=== PATIENT | male | born 1965 | race Asian ===

== ENCOUNTER 2019-01-02 21:06 | Observation (INO) | payer OTHER ==
--- NOTE | 2019-01-02 21:12 | ED Physician Documentation ---
PD HPI CHEST PAIN - Stated complaint Stated Complaint: CP - History obtained from History obtained from: Patient - History of Present Illness Timing - onset: Enter time (04:00), Today Timing - onset during: Sleep Timing - details: Abrupt onset, Intermittant Pain level max: 3 Pain level now: 0 Quality: Pain Location: Substernal Radiation: Other (no radiation) Improved by: Nothing Worsened by: Inspiration (mild pleuritic component, otherwise no apparent inciting/exacerbating factors) Associated symptoms: Shortness of air. No: Diaphoresis, Nausea, Vomiting, Palpitations, Cough Similar symptoms before: Has not had sx before Recently seen: Not recently seen - Additional information Additional information: c/o shortness of breath and midline anterior chest discomfort that woke him from sleep 4 AM this morning, episodic since then. Denies h/o similar symptoms. No known cardiac disease. Review of Systems Constitutional: reports: Reviewed and negative Cardiac: reports: Chest pain / pressure. denies: Palpitations, Pedal edema, Calf pain Respiratory: reports: Dyspnea. denies: Cough, Hemoptysis, Wheezing GI: reports: Reviewed and negative Musculoskeletal: reports: Reviewed and negative Neurologic: reports: Reviewed and negative PD PAST MEDICAL HISTORY - Past Medical History Past Medical History: No - Past Surgical History Past Surgical History: No - Allergies Allergies/Adverse Reactions: Allergies Allergy/AdvReac Type Severity Reaction Status Date / Time No Known Drug Allergies Allergy Verified 01/03/19 02:13 - Living Situation Living Situation: reports: With spouse/s.o. Living Arrangement: reports: At home - Social History Does the pt smoke?: No PD ED PE NORMAL - Vitals Vital signs reviewed: Yes - General General: Alert and oriented X 3, No acute distress, Well developed/nourished - HEENT HEENT: Moist mucous membranes - Neck Neck: Supple, no meningeal sign - Cardiac Cardiac: No murmur - Respiratory Respiratory: No respiratory distress, Clear bilaterally - Abdomen Abdomen: Soft, Non tender - Derm Derm: Normal color, Warm and dry - Extremities Extremities: No edema PD ED PE EXPANDED - Cardiac Cardiac: Tachy, Regular Rhythm Results - Vitals Vitals: Vital Signs - 24 hr 01/02/19 01/02/19 01/02/19 21:15 21:34 22:31 Temperature 36.4 C L Heart Rate 128 H 116 H 105 H Respiratory 22 20 18 Rate Blood Pressure 166/81 H 159/77 H 160/93 H O2 Saturation 97 95 96 Oxygen O2 Source Room air - EKG (time done) No standard instances Rate: Rate (enter#) (122) Rhythm: Sinus tachycardia [place]: Normal, Anterior hemiblock Intervals: Normal [place], RBBB QRS: Normal Ischemia: Normal ST segments Compare to prior EKG: Old EKG unavailable - Labs Labs: Laboratory Tests 01/02/19 01/02/19 01/02/19 21:25 21:25 21:25 WBC 13.2 H RBC 4.92 Hgb 14.6 Hct 44.0 MCV 89.5 MCH 29.8 MCHC 33.3 RDW 13.5 Plt Count 267 MPV 8.3 Neut # (Auto) 10.7 H Lymph # (Auto) 1.0 L [facility] # (Auto) 1.3 H Eos # (Auto) 0.1 Baso # (Auto) 0.1 Absolute Nucleated RBC 0.00 Nucleated RBC % 0.0 Sodium 138 Potassium 3.9 Chloride 105 Carbon Dioxide 23 Anion Gap 10.0 BUN 17 Creatinine 1.1 Estimated GFR (MDRD) 70 L Glucose 135 H Calcium 9.5 Total Bilirubin 0.7 AST 23 ALT 31 Alkaline Phosphatase 56 Troponin I < 0.04 Total Protein 7.6 Albumin 4.2 Globulin 3.4 Albumin/Globulin Ratio 1.2 Lipase 27 TSH 01/02/19 21:27 WBC RBC Hgb Hct MCV MCH MCHC RDW Plt Count MPV Neut # (Auto) Lymph # (Auto) [facility] # (Auto) Eos # (Auto) Baso # (Auto) Absolute Nucleated RBC Nucleated RBC % Sodium Potassium Chloride Carbon Dioxide Anion Gap BUN Creatinine Estimated GFR (MDRD) Glucose Calcium Total Bilirubin AST ALT Alkaline Phosphatase Troponin I Total Protein Albumin Globulin Albumin/Globulin Ratio Lipase TSH 3.60 - Rads (name of study) chest xray Radiology: Prelim report reviewed, See rad report CT chest angio (PE study) Radiology: Prelim report reviewed, See rad report PD MEDICAL DECISION MAKING - ED course Complexity details: reviewed results, re-evaluated patient, considered differential, d/w patient Departure - Departure Disposition: ED Place in Observation Clinical Impression: Chest pain Condition: Good Discharge Date/Time: 01/03/19 00:25
[2019-01-02 21:33] LABS: BASOPHILS # (AUTO) 0.1 10^3/uL (0.0-0.1); BASOPHILS % (AUTO) 0.8 %; EOSINOPHILS # (AUTO) 0.1 10^3/uL (0.0-0.7); EOSINOPHILS % (AUTO) 0.6 %; HGB - HEMOGLOBIN 14.6 g/dL (14.0-18.0); LYMPHOCYTES % (AUTO) 7.6 %; MEAN CORPUSCULAR HEMOGLOBIN 29.8 pg (27.0-31.0); MEAN CORPUSCULAR HGB CONC 33.3 g/dL (32.0-36.0); MEAN CORPUSCULAR VOLUME 89.5 fL (80.0-94.0); MEAN PLATELET VOLUME 8.3 fL (7.4-11.4); MONOCYTES # (AUTO) 1.3 10^3/uL (0.0-1.0); MONOCYTES % (AUTO) 9.6 %; NEUTROPHILS # (AUTO) 10.7 10^3/uL (1.5-6.6); NEUTROPHILS % (AUTO) 81.4 %; PLT - PLATELET COUNT 267 10^3/uL (130-450); RED BLOOD COUNT 4.92 10^6/uL (4.70-6.10); RED CELL DISTRIBUTION WIDTH 13.5 % (12.0-15.0); WHITE BLOOD COUNT 13.2 x10^3/uL (4.8-10.8)
--- NOTE | 2019-01-02 21:43 | XRAY Report ---
Reason: SOA, chest px Procedure Date: 01/02/2019 Accession Number: [id number] / [id number] Procedure: XR - Chest 1 View X-Ray CPT Code: 39712 FULL RESULT: EXAM: CHEST RADIOGRAPHY EXAM DATE: 01/02/2019 09:35 PM. CLINICAL HISTORY: Shortness of air, chest pain. COMPARISON: None. TECHNIQUE: 1 view. FINDINGS: Lungs/Pleura: No focal opacities evident. No pleural effusion. No pneumothorax. Mediastinum: Within exam limitations, the cardiomediastinal contour is normal. Other: None. IMPRESSION: Normal single view chest. RADIA
[2019-01-02 21:44] LABS: ALBUMIN 4.2 g/dL (3.2-5.5); ALBUMIN/GLOBULIN RATIO 1.2 (1.0-2.2); BILIRUBIN,TOTAL 0.7 mg/dL (0.2-1.0); CALCIUM 9.5 mg/dL (8.5-10.3); CREATININE 1.1 mg/dL (0.6-1.2); TOTAL PROTEIN 7.6 g/dL (6.7-8.2)
[2019-01-02] MEDS ORDERED: IOVERSOL 320 100 ML VIAL IVP ONE ×2 (22:13→22:46)
--- NOTE | 2019-01-02 22:53 | CT Report ---
Reason: chest pain, dyspnea Procedure Date: 01/02/2019 Accession Number: [id number] / [id number] Procedure: CT - ANGIO CHEST W/WO CPT Code: FULL RESULT: EXAM: CT ANGIOGRAM CHEST EXAM DATE: 01/02/2019 10:43 PM. CLINICAL HISTORY: Chest pain, dyspnea. COMPARISON: None. TECHNIQUE: Routine helical imaging was performed through the chest in the pulmonary arterial phase. IV Contrast: 55 ML OPTIRAY 320. Reconstructions: Coronal 3-D MIP reconstructions.Sagittal and coronal. In accordance with CT protocol optimization, one or more of the following dose reduction techniques were utilized for this exam: automated exposure control, adjustment of mA and/or KV based on patient size, or use of iterative reconstructive technique. FINDINGS: Pulmonary Arteries: Diagnostic quality: Adequate through the segmental arteries. No evidence for acute or chronic pulmonary emboli. No evidence of right heart strain. Lungs/Pleura: Mild bibasilar atelectasis. No pleural effusion seen. No pneumothorax. Mediastinum: Heart size is normal. No lymphadenopathy. Thoracic Aorta: Unremarkable. Upper Abdomen: Possible fatty liver. Other: None. IMPRESSION: 1. No pulmonary emboli seen. 2. Bibasilar atelectasis. 3. Possible fatty liver. RADIA
[2019-01-02] MEDS ORDERED: MORPHINE 2 MG/ML CARPUJECT IVP PRN (23:42)
[2019-01-02] MEDS ORDERED: ONDANSETRON 4 MG/2 ML VIAL IVP PRN (23:45)
[2019-01-02] MEDS ORDERED: ZOLPIDEM 5 MG TABLET PO PRN (23:45)
[2019-01-02] MEDS ORDERED: ACETAMINOPHEN 325 MG TABLET PO PRN (23:45)
[2019-01-02] MEDS ORDERED: HYDROcod/ACETAM 5/325 MG TABLET PO PRN (23:45)
[2019-01-02] MEDS ORDERED: SODIUM CHLORIDE FLUSH 0.9% 10 ML SYRINGE IVP PRN (23:45)
[2019-01-02] MEDS ORDERED: MAG HYDROX/AL HYDROX/SIMETH 30 ML UDC PO PRN (23:46)
[2019-01-03] MEDS ORDERED: SODIUM CHLORIDE 0.9% 1,000 ML IV ONE (00:29)
[2019-01-03] MEDS ORDERED: PANTOPRAZOLE 40 MG VIAL IV ONE (00:30)
[2019-01-03] MEDS ORDERED: ATORVASTATIN 40 MG TABLET PO ONE (01:00)
[2019-01-03] MEDS: IPRATROPIUM/ALBUTEROL 3 ML NEB INH SCH ×2 (01:10→07:37)
[2019-01-03] MEDS: SODIUM CHLORIDE FLUSH 0.9% 10 ML SYRINGE IVP SCH ×2 (01:21→10:33)
[2019-01-03] MEDS ORDERED: ASPIRIN CHEW 81 MG TABLET PO ONE (02:00)
--- NOTE | 2019-01-03 06:48 | HISTORY & PHYSICAL EXAMINATION ---
DATE OF SERVICE: 01/03/2019 Physician: Nunu White MD PRIMARY CARE PHYSICIAN: Lauren Vega MD CHIEF COMPLAINT: Chest pressure. HISTORY OF PRESENT ILLNESS: Patient is a 53-year-old white male with remote history of seasonal allergies and asthma. In the remote past, he used an inhaler, but not during the past 10 years at least. He was in his usual state of health up to the morning of 01/02, after he woke up, he felt tightness like chest discomfort. He also felt tight with his back. He felt it might have been his asthma and tried to rest. He slept upright because he also thought maybe he had gastric reflux. After he woke up, he still felt chest pressure. He described it as 4/10 in intensity. It was associated with shortness of breath. He felt hot and had mild cough. He never experienced similar symptoms in the past. He never had cardiac workup and other than the seasonal allergies and asthma, he has no other past medical history. He went for dinner with his , they celebrated their anniversary. At dinner, he felt worse and subsequently his parents drove him to the ER. At the ER, he was accompanied by his . The mentioned that she was worried as the patient has high pain tolerance, he never complains and he looked very uncomfortable before they came in. Regarding aggravating or alleviating factors, patient thought that the chest pressure was somewhat worse at rest. It did not increase on activity. He tried to take Tylenol and Zantac and Tums, which did not help. PAST MEDICAL HISTORY 1. Seasonal allergies and possible asthma, not using an inhaler recently not at least during the past 10 years. 2. History of ankle fracture. OUTPATIENT MEDICATIONS: The patient does not take prescription medications, only [id number] medications occasionally. SOCIAL HISTORY: The patient does not smoke, does not drink. He drives a garbage truck. FAMILY HISTORY: Reviewed, noncontributory. CODE STATUS: FULL CODE. REVIEW OF SYSTEMS: Please see pertinent positives listed above in history of present illness. The patient did not report additional complaints on the 12- system review. EMERGENCY ROOM COURSE AND WORKUP: Upon presentation to the ER, patient was tachycardic. Heart rate was up to the 120s. He was afebrile with temperature of 36.4, blood pressure was 166/81, respiratory rate was 22, oxygen saturation 97% on room air. Laboratories were nonrevealing with negative troponin, slightly elevated white blood cell count 13.2. Normal chemistry panel. Due to tachycardia and chest discomfort, patient underwent CT angiography of the chest, which showed no pulmonary emboli, bibasilar atelectasis and possible fatty liver. EKG showed right bundle branch block and left anterior fascicular block. It was an abnormal EKG and there was also sinus tachycardia. PHYSICAL EXAMINATION VITAL SIGNS: See listed above at history of present illness. GENERAL: The patient is a well-developed male who still complained of chest discomfort, but improved from previous. CARDIOVASCULAR: S1, S2. Regular tachycardia. LUNGS: Clear to auscultation without wheezes or crackles. During the exam, the patient had mild cough. LYMPHATIC: No lymphedema. MUSCULOSKELETAL: Truncal obesity. No chest wall tenderness. ABDOMEN: Distended abdomen Bowel tones present. There was epigastric tenderness. No guarding. No rebound. PSYCHIATRIC: Cooperative. NEUROLOGIC: Alert, oriented, nonfocal. DERMATOLOGIC: No jaundice. No rash. ASSESSMENT/DIAGNOSES 1. Abnormal EKG/right bundle branch block. No previous one to compare. Right bundle branch block is most likely chronic. It is a wide complex, but sinus tachycardia, does not appear like V-tachycardia, atrial fibrillation or atrial flutter. I would favor that this is a chronic EKG change. 2. Chest discomfort, mostly atypical features. The patient's chest pain complaint has mostly atypical features such as getting worse at rest and when he lies down. It is associated with mild cough; which would suggest gastroesophageal reflux plus minus mild asthma/URI. On exam, the patient really has epigastric tenderness. In addition, CT scan of the chest showed atelectasis, but no other problem. 3. Obesity, question sleep apnea. 4. Symptoms suggestive of gastroesophageal reflux. 5. Upper respiratory illness with remote history of asthma. SUMMARY: Patient is a 53-year-old male with no significant past medical history and with no prior cardiac workup. He does not have history of coronary artery disease or diabetes. Never had cardiac evaluation in the past. It is reassuring that the chest pain has been ongoing for more than 8 hours, started on the morning of 01/02/2019 and when the patient presents his troponin is negative, that would suggest noncardiac chest pain. The patient presents with complaints, which suggest possible reflux as his symptoms are worse when he lies flat and the pain is more epigastric than chest pain. Has mild cough and felt the chest pressure initially was similar to asthma symptoms he had in the past. At the same time, he does have an abnormal EKG, which would warrant further monitoring and workup. He does have right bundle branch block, which could be chronic. I question whether he has underlying sleep apnea. Tachycardia appears wide complex, but EKG is sinus rhythm. There is no V-tachycardia or atrial arrhythmia. PLAN AND ORDERS 1. Patient is being admitted under observation and undergoing rapid cardiac rule out. We will repeat EKG, monitor patient on telemetry, cycle troponins. For now, we will give aspirin and Lipitor. Symptom control for probable reflux will include proton pump inhibitor, Maalox, elevate the head of the bed and nonpharmacologic measures. Considering the patient had a mild cough and has history of allergies and asthma, we will use bronchodilators and incentive spirometry. White blood cell count was elevated, which could be a reactive change, I did not see any infectious source that would indicate antibiotic treatment. It is notable that the patient besides tachycardia was hypertensive that could be situational, will be monitored. If he remains hypertensive after symptom improvement, then antihypertensive medication should be considered. 2. Deep venous thrombosis prophylaxis. 3. FULL CODE. ATTESTATION: Expect <48 hrs hospital stay. Admitted under observation. Time spent with the care of this patient 60 minutes. TD: 01/03/2019 00:51 YENIFER
[2019-01-03 07:52] VITALS: BP 125/70
[2019-01-03] MEDS ORDERED: ASPIRIN EC 81 MG TABLET PO SCH (09:00)
[2019-01-03] MEDS ORDERED: POLYETHYLENE GLYCOL 3350 17 GM PACKET PO SCH (09:00)
--- NOTE | 2019-01-03 11:36 | Discharge Plan ---
Discharge Plan Disposition: Home, Self Care Condition: Stable Prescriptions: Albuterol Sulfate [Proair Hfa Inhaler] 1 - 2 puffs INH Q4H PRN #1 inhaler PRN Reason: Shortness Of Air/Wheezing Famotidine [Pepcid] 40 mg PO DAILY #30 tablet Diet: Regular (Low fat, low acid diet) Activity Restrictions: Activity as Tolerated Shower Restrictions: No Driving Restrictions: No Instruction Topics: Inhaler Use, GERD, Meds Acid Reflux, GERD Lifestyle Changes Additional Instructions or Follow Up instructions: You were In the hospital to evaluate your chest pain. We found that you had no heart attack or heart failure, but you did not have a stress test done, as we do not have that ability over the weekend. Your symptoms sound more like asthma, therefore you are being discharged with a new inhaler. The symptoms could also be from worsening of your acid reflux, therefore you are being discharged on a new acid treatment. You should refrain from using aspirin or Ibuprofen or Advil unless it is absolutely necessary, since they may cause stomach pain and ulcers. Try Tylenol Extra Strength for treating aches and pains (500-650 mg tablets). You should see your PCP in the next week for further evaluation and management and medication adjustments. If you have new or worsening symptoms, contact your PCP, or come to the ER. No Smoking: If you smoke, Please STOP! Call for help. Follow-up with: Lauren Vega DO [Provider Admit Priv/Credential] -
--- NOTE | 2019-01-03 12:20 | DISCHARGE SUMMARY ---
Discharge Summary Admit Date: 01/02/19 Discharge Date: 01/03/19 Discharging Provider: Dr Angelic Sawyer Primary Care Provider: Dr Lauren Vega Condition at Discharge: Stable Discharge Disposition: 01 Home, Self Care - DIAGNOSES Admission Diagnoses: 1. Chest pain 2. RBBB 3. Hx of GERD 4. Hx of asthma Discharge Diagnoses with Status of Each Condition: 1. Atypical chest pain. The CTA done in the ER showed no evidence of pulmonary embolism. He ruled out for an TX with troponins negative x3. His EKG showed no changes compared to day 1. His resting Echo showed no LV regional wall motion of normality's. No stress test could be done, since he was here over the weekend. The symptoms were more compatible with chest "tightness" from asthma or acid reflux symptoms(see below). 2. Asthma. The patient is on no prescription medications for this but holds this diagnosis. He reported that the "chest tightness feeling was like his ribs were closing in on him" and stated that he felt better after nebulizer treatment given here. He was therefore sent home with new prescription for Albuterol inhaler to use every 4 hours as needed 3. GERD. The symptoms were also consistent with possible GERD and therefore GERD may be associated with his asthma if he hasAspiration of acid. He was therefore sent home with new prescription for Pepcid. He was told to see his PCP in the next week for further management of these new symptoms. 4. Right bundle branch block. Given this finding on EKG and his morbid obesity, he should be evaluated for sleep apnea as an outpatient. 5. Morbid obesity. The patient's BMI is 36. He needs help with weight reduction. - HPI History of Present Illness: This is a 53-year-old white male with a history of seasonal allergies, asthma and GERD, is on no prescription medications. He has morbid obesity. He occasionally takes ibuprofen for a pinched nerve causing pain in his arm. He awoke with chest tightness in the front and back of his chest, rated 4/10. He was not short of breath or have any nausea or vomiting. He thought it was his asthma and tried resting, sitting upright. He tried taking Tylenol, Zantac and Tums and they did not help. There have never been similar symptoms. He has never had a cardiac work-up. He went for dinner with his and felt worse and presented to the ER after 8 hours of chest pain. The patient described the chest tightness being worse at rest and in the reclined position, not worse with activity. EKG showed right bundle branch block and there was no prior EKG for comparison. He was placed in Observation status to evaluate the chest pain. - CONSULTS | PROCEDURES Consultations: None - HOSPITAL COURSE Hospital Course: See above - ALLERGIES Allergies/Adverse Reactions: Allergies Allergy/AdvReac Type Severity Reaction Status Date / Time No Known Drug Allergies Allergy Verified 01/03/19 02:13 - MEDICATIONS Home Medications: Ambulatory Orders Medication Instructions Recorded Confirmed Albuterol Sulfate [Proair Hfa 1 - 2 puffs INH Q4H PRN #1 inhaler 01/03/19 Inhaler] Famotidine [Pepcid] 40 mg PO DAILY #30 tablet 01/03/19 - PHYSICAL EXAM AT DISCHARGE General Appearance: positive: No acute distress, Alert Eyes Bilateral: positive: Normal inspection ENT: positive: ENT inspection nml Neck: positive: Nml inspection Respiratory: positive: No respiratory distress Cardiovascular: positive: Regular rate & rhythm Abdomen: positive: Other (Obese) Extremities: positive: No pedal edema - LABS Result Diagrams: 01/02/19 21:25 01/02/19 21:25 - DIAGNOSTIC IMAGING Diagnostic Imaging Results: Final report reviewed - TIME SPENT Time Spent in Discharge (Minutes): 30
== END 2019-01-03 12:28 | disposition home or self-care (01) ==
LOC: ED 21:06 → OBS 23:43
PROVIDERS: ADMIT Internal Medicine; ATTEND Internal Medicine
DX: R07.89 Other chest pain (principal); I45.10 Unspecified right bundle-branch block; J45.909 Unspecified asthma, uncomplicated; K21.9 Gastro-esophageal reflux disease without esophagitis; E66.01 Morbid (severe) obesity due to excess calories; Z68.35 Body mass index [BMI] 35.0-35.9, adult; Z79.51 Long term (current) use of inhaled steroids
CPT/HCPCS: 36415; 71045; 71275; 83690; 84484; 93005; 93306; 94640; 96361; 96374; 96375; 99284; A9270; G0378; Q9967; 80053; 84443; 85025

== ENCOUNTER 2019-01-06 08:00 | Outpatient (CLI) | payer OTHER ==
[2019-01-06 14:17] LABS: BASOPHILS # (AUTO) 0.1 10^3/uL (0.0-0.1); BASOPHILS % (AUTO) 1.2 %; EOSINOPHILS # (AUTO) 0.2 10^3/uL (0.0-0.7); HGB - HEMOGLOBIN 14.7 g/dL (14.0-18.0); LYMPHOCYTES % (AUTO) 25.2 %; MEAN CORPUSCULAR HEMOGLOBIN 29.7 pg (27.0-31.0); MEAN CORPUSCULAR HGB CONC 32.8 g/dL (32.0-36.0); MEAN CORPUSCULAR VOLUME 90.6 fL (80.0-94.0); MEAN PLATELET VOLUME 8.5 fL (7.4-11.4); MONOCYTES # (AUTO) 0.7 10^3/uL (0.0-1.0); MONOCYTES % (AUTO) 8.9 %; NEUTROPHILS # (AUTO) 4.9 10^3/uL (1.5-6.6); NEUTROPHILS % (AUTO) 61.7 %; PLT - PLATELET COUNT 309 10^3/uL (130-450); RED BLOOD COUNT 4.94 10^6/uL (4.70-6.10); RED CELL DISTRIBUTION WIDTH 14.1 % (12.0-15.0); WHITE BLOOD COUNT 7.9 x10^3/uL (4.8-10.8)
[2019-01-06 14:38] LABS: ALBUMIN/GLOBULIN RATIO 1.1 (1.0-2.2); ALKALINE PHOSPHATASE 52 IU/L (42-121); ALT ALANINE AMINOTRANSFERASE 26 IU/L (10-60); AST ASPARTATE AMINOTRANSFERASE 20 IU/L (10-42); BILIRUBIN,TOTAL 0.5 mg/dL (0.2-1.0); BUN - BLOOD UREA NITROGEN 23 mg/dL (6-20); CALCIUM 9.2 mg/dL (8.5-10.3); CARBON DIOXIDE - CO2 22 mmol/L (21-32); CHLORIDE 107 mmol/L (101-111); CHOL/HDL RATIO 5.1 (<5.0); CHOLESTEROL 221 mg/dL; GFR - MDRD 78 (>89); GLUCOSE 104 mg/dL (70-100); HDL CHOLESTEROL 43 mg/dL; LDL CHOLESTEROL,CALCULATED 156 mg/dL; LDL/HDL RATIO 3.6 (<3.6); SODIUM 137 mmol/L (135-145); TOTAL PROTEIN 7.5 g/dL (6.7-8.2); VLDL CHOLESTEROL 22 mg/dL
== END 2019-01-06 08:01 | disposition home or self-care (01) ==
LOC: LAB.WCP 08:00
PROVIDERS: ATTEND Family Medicine
DX: Z00.00 Encounter for general adult medical examination without abnormal findings (principal); Z12.5 Encounter for screening for malignant neoplasm of prostate
CPT/HCPCS: 36415; 80053; 80061; 83721; 84153; 85025

== ENCOUNTER 2019-05-25 08:59 | Day surgery (SDC) | payer OTHER ==
[2019-05-25] MEDS ORDERED: LACTATED RINGERS 1,000 ML IV ONE (09:27)
[2019-05-25 12:40] VITALS: BP 98/66
== END 2019-05-25 09:00 | disposition home or self-care (01) ==
LOC: SDS 08:59
PROVIDERS: ATTEND Internal Medicine Gastroenterology
PROC: 0DJD8ZZ Inspection of Lower Intestinal Tract, Via Natural or Artificial Opening Endoscopic (ICD-10-PCS; principal; 2019-05-25 10:45)
DX: Z12.11 Encounter for screening for malignant neoplasm of colon (principal); I45.10 Unspecified right bundle-branch block; E66.9 Obesity, unspecified; Z68.36 Body mass index [BMI] 36.0-36.9, adult; Z87.891 Personal history of nicotine dependence
CPT/HCPCS: 45378; J7120

== ENCOUNTER 2020-01-17 06:26 | Emergency (ER) | payer OTHER ==
[2020-01-17 06:45] VITALS: BP 147/74
--- NOTE | 2020-01-17 07:17 | ED Physician Documentation ---
History of Present Illness - Stated complaint Stated Complaint: MALE - Chief complaint Chief Complaint: General - History obtained from History obtained from: Patient, Family - History of Present Illness Timing: Today - Additonal information Additional information: 54-year-old male noticed a lump in his rectum 3 days ago and it was a little bit tender and he had not had this happen to him previously. He thought this was probably a hemorrhoid. Today he began to bleed excessively and is continuing to bleed he is come to the emergency department with blood all over his shorts. Review of Systems Constitutional: denies: Fever Eyes: denies: Decreased vision Ears: denies: Ear pain Nose: denies: Congestion Throat: denies: Sore throat Cardiac: denies: Chest pain / pressure, Palpitations Respiratory: denies: Dyspnea, Cough GI: denies: Abdominal Pain, Nausea, Vomiting, Constipation, Diarrhea : denies: Dysuria, Frequency Skin: denies: Rash Musculoskeletal: denies: Neck pain, Back pain, Extremity pain Neurologic: denies: Generalized weakness, Focal weakness, Numbness PD PAST MEDICAL HISTORY - Past Medical History Past Medical History: Yes Cardiovascular: None Respiratory: Asthma Neuro: None Endocrine/Autoimmune: None GI: None : None HEENT: None Psych: None Musculoskeletal: Osteoarthritis Derm: None - Past Surgical History Past Surgical History: Yes General: Colonoscopy Derm: Other - Present Medications Home Medications: Ambulatory Orders Medication Instructions Recorded Confirmed No Known Home Medications 01/17/20 01/17/20 - Allergies Allergies/Adverse Reactions: Allergies Allergy/AdvReac Type Severity Reaction Status Date / Time No Known Drug Allergies Allergy Verified 01/17/20 06:45 - Social History Does the pt smoke?: No Smoking Status: Never smoker Does the pt drink ETOH?: Yes ETOH Use: Beer, Liquor Does the pt have substance abuse?: No - Immunizations Immunizations are current?: Yes - POLST Patient has POLST: No PD ED PE NORMAL - Vitals Vital signs reviewed: Yes (hypertensive mild ) - General General: Alert and oriented X 3, Well developed/nourished, Other (mildly anxious ) - HEENT HEENT: Atraumatic, PERRL, EOMI - Respiratory Respiratory: No respiratory distress - Rectal Rectal: Other (There is an external hemorrhoid at 4:00 it is unroofed and bleeding. I am able to reduce it with continued pressure. This is not stop the bleeding. After a clean up the area is compressed again for an extended period of time with improvement in the bleeding.) - Derm Derm: Normal color, Warm and dry, No rash - Extremities Extremities: No deformity, No edema, No calf tenderness / cord - Neuro Neuro: Alert and oriented X 3, clinical account manager 2-12 intact, No motor deficit, No sensory deficit, Normal speech Eye Opening: Spontaneous Motor: Obeys Commands Verbal: Oriented GCS Score: 15 - Psych Psych: Normal mood, Normal affect Results - Vitals Vitals: Vital Signs - 24 hr 01/17/20 06:30 Temperature 36.5 C Heart Rate 65 Respiratory 18 Rate Blood Pressure 147/74 H O2 Saturation 97 Oxygen O2 Source Room air PD MEDICAL DECISION MAKING - ED course Complexity details: reviewed old records, re-evaluated patient, considered differential, d/w patient ED course: 54-year-old male with a bleeding external hemorrhoid has no other specific complaints. I discussed with the patient care of hemorrhoids including reduction of them when they happen and application of hydrocortisone when they are inflamed. I have asked him to place direct pressure for continued period of time should he have recurrence of his bleeding. Departure - Departure Disposition: 01 Home, Self Care Clinical Impression: External hemorrhoid, bleeding Condition: Stable Instructions: ED Hemorrhoids Follow-Up: Lauren Vgea DO [Primary Care Provider] -
== END 2020-01-17 07:34 | disposition home or self-care (01) ==
LOC: ED 06:26
DX: K64.4 Residual hemorrhoidal skin tags (principal)
CPT/HCPCS: 99282; 99284

== ENCOUNTER 2020-01-19 07:49 | Outpatient (CLI) | payer OTHER ==
[2020-01-19 12:17] LABS: BASOPHILS # (AUTO) 0.1 10^3/uL (0.0-0.1); BASOPHILS % (AUTO) 1.4 %; EOSINOPHILS # (AUTO) 0.2 10^3/uL (0.0-0.7); EOSINOPHILS % (AUTO) 2.4 %; HGB - HEMOGLOBIN 15.4 g/dL (14.0-18.0); LYMPHOCYTES % (AUTO) 28.1 %; MEAN CORPUSCULAR HEMOGLOBIN 30.7 pg (27.0-31.0); MEAN CORPUSCULAR VOLUME 93.2 fL (80.0-94.0); MEAN PLATELET VOLUME 10.2 fL (7.4-11.4); MONOCYTES # (AUTO) 0.7 10^3/uL (0.0-1.0); MONOCYTES % (AUTO) 9.8 %; NEUTROPHILS % (AUTO) 57.9 %; PLT - PLATELET COUNT 317 10^3/uL (130-450); RED BLOOD COUNT 5.01 10^6/uL (4.70-6.10); RED CELL DISTRIBUTION WIDTH 12.9 % (12.0-15.0); WHITE BLOOD COUNT 6.9 x10^3/uL (4.8-10.8)
[2020-01-19 13:15] LABS: ALBUMIN/GLOBULIN RATIO 1.3 (1.0-2.2); ALKALINE PHOSPHATASE 56 IU/L (42-121); ALT ALANINE AMINOTRANSFERASE 29 IU/L (10-60); AST ASPARTATE AMINOTRANSFERASE 20 IU/L (10-42); BILIRUBIN,TOTAL 0.7 mg/dL (0.2-1.0); BUN - BLOOD UREA NITROGEN 20 mg/dL (6-20); CALCIUM 9.3 mg/dL (8.5-10.3); CARBON DIOXIDE - CO2 24 mmol/L (21-32); CHLORIDE 107 mmol/L (101-111); CHOL/HDL RATIO 6.5 (<5.0); CHOLESTEROL 286 mg/dL; CREATININE 1.1 mg/dL (0.6-1.2); GLUCOSE 111 mg/dL (70-100); HDL CHOLESTEROL 44 mg/dL; LDL CHOLESTEROL,CALCULATED 217 mg/dL; LDL/HDL RATIO 4.9 (<3.6); SODIUM 137 mmol/L (135-145); VLDL CHOLESTEROL 25 mg/dL
[2020-01-19 14:43] LABS: FREE T4 (FREE THYROXINE) 0.85 ng/dL (0.58-1.64)
== END 2020-01-19 23:59 | disposition home or self-care (01) ==
LOC: LAB.WCP 07:49
PROVIDERS: ATTEND Family Medicine
DX: J45.909 Unspecified asthma, uncomplicated (principal); E66.9 Obesity, unspecified; I45.10 Unspecified right bundle-branch block; Z68.35 Body mass index [BMI] 35.0-35.9, adult; Z12.5 Encounter for screening for malignant neoplasm of prostate; K64.4 Residual hemorrhoidal skin tags
CPT/HCPCS: 36415; 80053; 80061; 83721; 84153; 84439; 84443; 85025

== ENCOUNTER 2022-11-12 09:40 | Outpatient (CLI) | payer OTHER ==
[2022-11-12 12:28] LABS: BASOPHILS # (AUTO) 0.1 10^3/uL (0.0-0.1); BASOPHILS % (AUTO) 1.3 %; EOSINOPHILS # (AUTO) 0.2 10^3/uL (0.0-0.7); EOSINOPHILS % (AUTO) 2.7 %; HGB - HEMOGLOBIN 14.7 g/dL (14.0-18.0); LYMPHOCYTES # (AUTO) 1.4 10^3/uL (1.5-3.5); LYMPHOCYTES % (AUTO) 17.7 %; MEAN CORPUSCULAR HEMOGLOBIN 29.9 pg (27.0-31.0); MEAN CORPUSCULAR HGB CONC 32.7 g/dL (32.0-36.0); MEAN CORPUSCULAR VOLUME 91.6 fL (80.0-94.0); MEAN PLATELET VOLUME 10.4 fL (7.4-11.4); MONOCYTES # (AUTO) 0.8 10^3/uL (0.0-1.0); MONOCYTES % (AUTO) 9.9 %; NEUTROPHILS # (AUTO) 5.3 10^3/uL (1.5-6.6); NEUTROPHILS % (AUTO) 67.9 %; PLT - PLATELET COUNT 311 10^3/uL (130-450); RED BLOOD COUNT 4.91 10^6/uL (4.70-6.10); RED CELL DISTRIBUTION WIDTH 12.9 % (12.0-15.0); WHITE BLOOD COUNT 7.7 x10^3/uL (4.8-10.8)
[2022-11-12 12:57] LABS: ALBUMIN 4.1 g/dL (3.2-5.5); ALBUMIN/GLOBULIN RATIO 1.2 (1.0-2.2); ALKALINE PHOSPHATASE 58 IU/L (42-121); ALT ALANINE AMINOTRANSFERASE 22 IU/L (10-60); AST ASPARTATE AMINOTRANSFERASE 19 IU/L (10-42); BILIRUBIN,TOTAL 0.6 mg/dL (0.2-1.0); BUN - BLOOD UREA NITROGEN 17 mg/dL (6-20); CALCIUM 9.3 mg/dL (8.5-10.3); CARBON DIOXIDE - CO2 27 mmol/L (21-32); CHLORIDE 106 mmol/L (101-111); CHOL/HDL RATIO 6.1 (<5.0); CHOLESTEROL 261 mg/dL; GFR - MDRD 77 (>89); GLUCOSE 112 mg/dL (70-100); HDL CHOLESTEROL 43 mg/dL; LDL CHOLESTEROL,CALCULATED 190 mg/dL; LDL/HDL RATIO 4.4 (<3.6); POTASSIUM 4.1 mmol/L (3.5-5.0); SODIUM 138 mmol/L (135-145); TOTAL PROTEIN 7.5 g/dL (6.7-8.2); TRIGLYCERIDES 140 mg/dL; VLDL CHOLESTEROL 28 mg/dL
[2022-11-12 13:09] LABS: THYROID STIMULATING HORMONE 5.54 uIU/mL (0.34-5.60)
[2022-11-12 14:09] LABS: ESTIMATED AVERAGE GLUCOSE 117 mg/dL (70-100); HEMOGLOBIN A1c% 5.7 % (4.27-6.07)
== END 2022-11-12 09:41 | disposition home or self-care (01) ==
LOC: LAB.N 09:40
PROVIDERS: ATTEND Nurse Practitioner Family
DX: I10 Essential (primary) hypertension (principal); R73.01 Impaired fasting glucose; E66.9 Obesity, unspecified
CPT/HCPCS: 36415; 80053; 80061; 83036; 83721; 84443; 85025

== ENCOUNTER 2022-11-16 17:23 | Emergency (ER) | payer OTHER ==
[2022-11-16 17:59] LABS: RAPID STREP SCREEN Negative (Negative)
--- NOTE | 2022-11-16 18:40 | XRAY Report ---
PROCEDURE: Chest 2 View X-Ray INDICATIONS: productive cough with SOA TECHNIQUE: 2 views of the chest were acquired. COMPARISON: None. FINDINGS: Surgical changes and devices: None. Lungs and pleura: No pleural effusions or pneumothorax. Lungs are clear. Mediastinum: Mediastinal contours appear normal. Heart size is normal. Bones and chest wall: No suspicious bony lesions. Overlying soft tissues appear unremarkable. IMPRESSION: Normal two-view chest x-ray Reviewed by: Chilo Valero MD on 11/16/2022 5:39 PM [facility]DT Approved by: Chilo Valero MD on 11/16/2022 5:39 PM [facility]DT Station ID: [id number]
[2022-11-16 18:43] LABS: CORONAVIRUS 229E-RESP PCR NOT DETECTED; CORONAVIRUS HKU1-RESP PCR NOT DETECTED; CORONAVIRUS NL63-RESP PCR NOT DETECTED; CORONAVIRUS OC43-RESP PCR NOT DETECTED
[2022-11-16 18:44] LABS: B. PARAPERTUSSIS- RESP PCR PAN NOT DETECTED; B. PERTUSSIS- RESP PCR PANEL NOT DETECTED; C. PNEUMONIAE- RESP PCR PANEL NOT DETECTED; HUMAN METAPNEUMOVIRUS NOT DETECTED; INFLUENZA A- RESP PCR PANEL NOT DETECTED; INFLUENZA B - RESP PCR PANEL NOT DETECTED; M. PNEUMONIAE- RESP PCR PANEL NOT DETECTED; PARAINFLUENZA VIRUS 1 NOT DETECTED; PARAINFLUENZA VIRUS 2 NOT DETECTED; PARAINFLUENZA VIRUS 3 DETECTED; PARAINFLUENZA VIRUS 4 NOT DETECTED; RHINOVIRUS/ENTEROVIRUS NOT DETECTED; RSV- RESP PCR PANEL NOT DETECTED; SARS-CoV-2 -RESP PCR PANEL NOT DETECTED
[2022-11-16] MEDS ORDERED: IPRATROPIUM/ALBUTEROL 3 ML NEB INH STA (20:06)
[2022-11-16] MEDS ORDERED: predniSONE 20 MG TABLET PO STA (20:06)
[2022-11-16] MEDS ORDERED: BENZONATATE 100 MG CAPSULE PO STA (20:14)
--- NOTE | 2022-11-16 20:22 | ED Physician Documentation ---
PD HPI URI - Stated complaint Stated Complaint: FEVER/SOA - Chief complaint Chief Complaint: Resp - History obtained from History obtained from: Patient - History of Present Illness Timing - onset: How many days ago (3-4) Timing duration: Days (3-4) Timing details: Gradual onset Pain level max: 0 Pain level now: 0 Associated symptoms: Fever, Rhinorrhea, Sore throat, Productive cough, Dyspnea. No: Chills, Hemoptysis, Chest pain Contributing factors: Sick contact, COPD / asthma Improves by: Rest Worsened by: Activity - Additional information Additional information: 57-year-old male presents to the emergency department with 3 to 4 days of cough and congestion. Also has wheezing. Has used inhalers in the past, but does not currently have one. Review of Systems Constitutional: denies: Fever, Chills Respiratory: denies: Cough GI: denies: Vomiting, Diarrhea PD PAST MEDICAL HISTORY - Past Medical History Cardiovascular: Hypertension, High cholesterol Respiratory: Asthma Neuro: None Endocrine/Autoimmune: None GI: None : None HEENT: None Psych: None Musculoskeletal: Osteoarthritis Derm: None - Past Surgical History Past Surgical History: Yes General: Colonoscopy Derm: Other - Present Medications Home Medications: Ambulatory Orders Medication Instructions Recorded Confirmed Albuterol Sulf [Ventolin Hfa 1 - 2 puffs INH Q4HR PRN #1 each 11/16/22 Inhaler] Benzonatate [Tessalon] 200 mg PO TID PRN #30 cap 11/16/22 predniSONE [Deltasone] 10 mg PO [id number] #42 tab 11/16/22 - Allergies Allergies/Adverse Reactions: Allergies Allergy/AdvReac Type Severity Reaction Status Date / Time hay Allergy Unknown Uncoded 11/16/22 17:43 - Social History Does the pt smoke?: No Smoking Status: Never smoker Does the pt drink ETOH?: Yes Does the pt have substance abuse?: No - Immunizations Immunizations are current?: Yes - POLST Patient has POLST: No PD ED PE NORMAL - Vitals Vital signs reviewed: Yes - General General: Alert and oriented X 3, No acute distress - HEENT HEENT: PERRL, Ears normal, Moist mucous membranes, Other (Mild posterior pharyngeal erythema without tonsillar exudates. Normal phonation. No trismus. No stridor.) - Neck Neck: Supple, no meningeal sign, No adenopathy - Cardiac Cardiac: RRR - Respiratory Respiratory: No respiratory distress, Other (Mild wheezing bilaterally) - Abdomen Abdomen: Soft, Non tender, Non distended - Derm Derm: Warm and dry - Neuro Neuro: Alert and oriented X 3 - Psych Psych: Normal mood, Normal affect Results - Vitals Vitals: Vital Signs - 24 hr 11/16/22 11/16/22 11/16/22 17:39 20:00 20:25 Temperature 37.3 C Heart Rate 111 H 90 88 Respiratory 24 16 Rate Blood Pressure 162/80 H 148/72 H O2 Saturation 95 92 11/16/22 20:47 Temperature Heart Rate 87 Respiratory 19 Rate Blood Pressure 102/54 L O2 Saturation 91 L Oxygen O2 Source Room air - Labs Labs: Laboratory Tests 11/16/22 11/16/22 17:44 17:44 Nasal Adenovirus (PCR) NOT DETECTED Nasal B. parapertussis DNA (PCR) NOT DETECTED Nasal Coronavir 229E PCR NOT DETECTED Nasal Coronavir HKU1 PCR NOT DETECTED Nasal Coronavir NL63 PCR NOT DETECTED Nasal Coronavir OC43 PCR NOT DETECTED Nasal Enterovir/Rhinovir PCR NOT DETECTED Nasal Influenza B PCR NOT DETECTED Nasal Influenza A PCR NOT DETECTED Nasal Parainfluen 1 PCR NOT DETECTED Nasal Parainfluen 2 PCR NOT DETECTED Nasal Parainfluen 3 PCR DETECTED A Nasal Parainfluen 4 PCR NOT DETECTED Nasal RSV (PCR) NOT DETECTED Nasal B.pertussis DNA PCR NOT DETECTED Nasal C.pneumoniae (PCR) NOT DETECTED Jasen Human Metapneumo PCR NOT DETECTED Nasal M.pneumoniae (PCR) NOT DETECTED Nasal SARS-CoV-2 (PCR) NOT DETECTED Group A Strep Rapid Negative - Rads (name of study) Chest x-ray Relevant Findings:: Final report received, See rad report (No acute abnormality) PD Medical Decision Making - ED course Complexity details: reviewed results, re-evaluated patient, considered differential, d/w patient, d/w family ED course: Patient is positive for parainfluenza. Negative for pneumonia on chest x-ray. Given prednisone here, Tessalon and DuoNeb treatment. Patient is breathing easier and feels better. We will represcribe an inhaler for home. COVID is negative. Patient is well-appearing, nontoxic. Afebrile. No respiratory distress. No hypoxia. Patient counseled regarding signs and symptoms for which I believe and urgent re-evaluation would be necessary. Patient with good understanding of and agreement to plan and is comfortable going home at this time This document was made in part using voice recognition software. While efforts are made to proofread this document, sound alike and grammatical errors may occur. Departure - Departure Disposition: 01 Home, Self Care Clinical Impression: Parainfluenza Upper respiratory tract infection Qualifiers: URI type: unspecified viral URI Qualified Code(s): J06.9 - Acute upper respiratory infection, unspecified Condition: Good Instructions: ED Viral Syndrome Follow-Up: Angle Rick ARNP [Primary Care Provider] - Within 1 week Prescriptions: Albuterol Sulf [Ventolin Hfa Inhaler] 1 - 2 puffs INH Q4HR PRN #1 each PRN Reason: Shortness Of Air/Wheezing predniSONE [Deltasone] 10 mg PO [id number] #42 tab Benzonatate [Tessalon] 200 mg PO TID PRN #30 cap PRN Reason: Cough Comments: Your x-ray does not show any acute abnormalities today. Your prescriptions were sent to [facility] in [place]. You are positive for parainfluenza which is a viral illness. Please use the inhaler as prescribed. Please return if you worsen. Discharge Date/Time: 11/16/22 20:49
[2022-11-16 20:49] VITALS: BP 102/54
== END 2022-11-16 20:49 | disposition home or self-care (01) ==
LOC: ED 17:23
DX: I10 Essential (primary) hypertension (principal); B34.8 Other viral infections of unspecified site; J06.9 Acute upper respiratory infection, unspecified; Z20.822 Contact with and (suspected) exposure to COVID-19
CPT/HCPCS: 71046; 87070; 87430; 87633; 94640; 99283; 99284; A9270; J7512

== ENCOUNTER 2022-12-25 19:38 | Outpatient (CLI) | payer OTHER ==
--- NOTE | 2022-12-25 21:26 | Ultrasound Report ---
PROCEDURE: Head or Neck Soft Tissue INDICATIONS: CERVICAL LYMPHADENITIS TECHNIQUE: Real-time scanning was performed of the thyroid gland, with image documentation. COMPARISON: None FINDINGS: Right: Thyroid lobe measures 5 x 1.7 x 1.7 cm, and is homogeneous in echotexture. Left: Thyroid lobe measures 4.6 x 1.5 x 1.4 cm, and is homogenous in echotexture. Isthmus: 0.5 cm thick. Nodule number: One Location: Inferior right lobe Size: 0.7 x 0.6 x 0.6 cm. Composition: Solid. Echogenicity: Hypoechoic. Shape: wider than tall. Margins: Smooth (0 points). Echogenic foci: None (0 points). Total points: 4 ACR TI-RADS category: Moderately suspicious (4-6 points). There are bilateral enlarged cervical lymph nodes demonstrated. These include a right level 2 node me asuring up to 2.0 cm in short axis. On the left, a eligibility services representative level 3 node measures up to 1.8 cm in short axis. IMPRESSION: 1. Bilateral abnormal enlarged cervical lymph nodes are highly suspicious for malignancy, such as met astatic disease or lymphoma. The differential includes infection but this is considered less likely. 2. Small right thyroid nodule consistent with a TI RADS 4 lesion. Recommend follow-up as per recommen dations below. ACR TI-RADS definitions and recommendations: TI-RADS 1 (benign): 0 points. FNA not needed. TI-RADS 2 (not suspicious): 2 points. FNA not needed. TI-RADS 3 (mildly suspicious): 3 points. "FNA if 2.5 cm or larger, follow up if 1.5 cm or larger (at 1, 3, and 5 years). TI-RADS 4 (moderately suspicious): 4-6 points. "FNA if 1.5 cm or larger, follow up if 1 cm or larger (at 1, 2, 3, and 5 years). TI-RADS 5 (highly suspicious): 7 points or more. "FNA if 1 cm or larger, follow up if 0.5 cm or larger (every year for 5 years). Reviewed by: Jonnie Arriola MD on 12/25/2022 9:25 PM PDT Approved by: Jonnie Arriola MD on 12/25/2022 9:25 PM PDT Station ID: [id number]
== END 2022-12-25 19:39 | disposition home or self-care (01) ==
LOC: DI 19:38
PROVIDERS: ATTEND Nurse Practitioner Family
DX: L04.8 Acute lymphadenitis of other sites (principal); J39.2 Other diseases of pharynx; E04.1 Nontoxic single thyroid nodule

== ENCOUNTER 2023-01-01 17:56 | Outpatient (CLI) | payer OTHER ==
[2023-01-01 18:31] LABS: CREATININE 1.1 mg/dL (0.6-1.2)
[2023-01-01] MEDS ORDERED: DIATRIZOATE MEGLU/DIATRIZO SOD 30 ML BOTTLE PO ONE (20:52)
--- NOTE | 2023-01-02 11:39 | CT Report ---
PROCEDURE: SOFT TISSUE NECK W INDICATIONS: ABNORMAL US CONTRAST: 100mL Omni 350 TECHNIQUE: After the administration of intravenous contrast, 3.0 mm axial sections acquired from the sella to th e aortic arch. Additional oblique axial 3.0 mm sections acquired through the pharynx. 3 mm thick co janis reformats were generated. For radiation dose reduction, the following was used: automated exp osure control, adjustment of mA and/or kV according to patient size. COMPARISON: None. FINDINGS: Image quality: Excellent. Lymph nodes: Bulky bilateral level 2A nodes measure up to 2.3 cm on the left. Focal low density in no gerber on the right to suggest early necrosis. Additional left level 3 node measures 2.1 x 1.6 cm. Vessels: Visualized vasculature appears patent. Neck spaces: There is enhancement and ill-defined soft tissue thickening along the pharyngeal side o f the epiglottis as well as the vallecular sinuses and base of the tongue. Otherwise, the vocal cords , false vocal cords, pyriform sinuses, all appear normal. Glands: The parotid and submandibular glands appear normal. The thyroid is normal in size and there are no incidental findings. Miscellaneous: Visualized brain and orbits appear normal. Lung apices appear clear. Superficial so ft tissues appear normal. Bones: Vague hypodensity in the T1 vertebral body is particularly prominent on the sagittal reformats is probably related to beam hardening artifact from shoulders. IMPRESSION: 1. Bulky bilateral deep cervical adenopathy, consistent with neoplastic adenopathy. 2. Ill-defined hypopharyngeal soft tissue with enhancement. Consider direct visualization and ENT con sult. 3. Hypodensity in the T1 vertebral body is most likely artifactual. However, differential would be m etastatic lesion. Consider follow-up MR cervical spine with contrast to include T1 and T2 vertebrae. Reviewed by: Chilo Valero MD on 01/02/2023 10:38 AM NIKKY Approved by: Chilo Valero MD on 01/02/2023 10:38 AM NIKKY Station ID: [id number]
--- NOTE | 2023-01-02 11:49 | CT Report ---
PROCEDURE: CHEST W INDICATIONS: ABNORMAL US CONTRAST: 100mL Omni 350 TECHNIQUE: After the administration of intravenous contrast, 1 mm axial images were acquired from the pulmonary apices through the posterior costophrenic angles. Axial 5 mm soft tissue kernel reconstructions were performed as well as 8 mm axial MIP and coronal and sagittal 5 mm reformations. For radiation dose reduction, the following was used: automated exposure control, adjustment of mA and/or kV according to patient size. COMPARISON: None. FINDINGS: Image quality: Excellent. Lungs and pleura: No consolidation. No pleural effusions. No pneumothorax. No suspicious pulmonary n odules which require follow up. Mediastinum: Heart size is normal. No pericardial effusion. No large vessel abnormality. No mediastin al adenopathy by size criteria. Chest wall and lower neck: Thyroid is unremarkable. Round left supra clavicular fossa node measuring 1.6 cm (series 4, image 1). Bones: No aggressive osseous abnormality. Upper Abdomen: Unremarkable. IMPRESSION: Abnormal morphology of an enlarged left supraclavicular fossa node. Differential includes metastatic disease from head and neck cancer or lymphoma. Tissue sampling may be warranted. Reviewed by: Ramakrishna Turcios on 01/02/2023 11:47 AM PDT Approved by: Ramakrishna Turcios on 01/02/2023 11:47 AM PDT Station ID: [id number]
--- NOTE | 2023-01-02 11:52 | CT Report ---
PROCEDURE: ABDOMEN/PELVIS W INDICATIONS: ABNORMAL US. Adenopathy of the neck. CONTRAST: 100mL Omni 350 TECHNIQUE: After the administration of oral and intravenous contrast, 5 mm thick sections acquired from the diap hragms to the symphysis. 5 mm thick coronal and sagittal reformats were acquired. For radiation dos e reduction, the following was used: automated exposure control, adjustment of mA and/or kV accordin g to patient size. COMPARISON: Same day x-ray. FINDINGS: Image quality: Excellent. Lung bases and heart: Unremarkable. Liver: 1.2 cm hypoattenuating lesion in segment 6 of the liver (series 2, image 35). Additional subce ntimeter hypoattenuating lesion in segment 6 (series 2, image 39). Gallbladder and biliary tree: Spleen: No splenomegaly. Pancreas: No pancreatic ductal dilation. Adrenals: No adrenal nodule. Kidneys and ureters: No hydronephrosis. No renal cystic lesion which requires follow up. No solid mas s. Bowel and peritoneum: No bowel distension. No pathologic free fluid. Lymph nodes: No central or retroperitoneal adenopathy. Vessels: No infrarenal aortic aneurysm. PELVIS Reproductive organs: Unremarkable. Bladder: No abnormal wall thickening, accounting 1for underdistension. Pelvic lymph nodes: No pelvic adenopathy by size criteria. Bones: No aggressive osseous abnormality. Other: Small, fat-containing inguinal hernias. IMPRESSION: A couple of hypoattenuating liver lesions, probably small cysts although metastatic disease is not en tirely excluded. Reviewed by: Ramakrishna Turcios on 01/02/2023 11:50 AM PDT Approved by: Ramakrishna Turcios on 01/02/2023 11:50 AM PDT Station ID: [id number]
== END 2023-01-01 17:57 | disposition home or self-care (01) ==
LOC: DI 17:56
PROVIDERS: ATTEND Nurse Practitioner Family
DX: E04.1 Nontoxic single thyroid nodule (principal); R93.89 Abnormal findings on diagnostic imaging of other specified body structures; J39.2 Other diseases of pharynx; L04.8 Acute lymphadenitis of other sites; R93.2 Abnormal findings on diagnostic imaging of liver and biliary tract
CPT/HCPCS: 36415; 70491; 71260; 74177; 82565; Q9963; Q9967

== ENCOUNTER 2023-01-01 18:02 | Outpatient (CLI) | payer OTHER | END 2023-01-01 18:03 | disposition home or self-care (01) | LOC: LAB 18:02 | PROVIDERS: ATTEND Nurse Practitioner Family | DX: Z53.9 Procedure and treatment not carried out, unspecified reason (principal) ==

== ENCOUNTER 2023-06-25 11:39 | Outpatient (CLI) | payer OTHER | END 2023-06-25 11:40 | disposition EMS.NT | LOC: EMS 11:39 | DX: R55 Syncope and collapse (principal) ==